=== PATIENT | male | born 1990 | race Caucasian/White ===

== ENCOUNTER 2021-07-09 19:49 | Emergency (ER) | payer OTHER, SELFPAY ==
[2021-07-09 20:00] VITALS: BP 130/86; PULSE 83; RESP 16; TEMP 36.2; O2SAT 100
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
== END 2021-07-09 20:11 | disposition home or self-care (01) ==
PROVIDERS: Emergency Provider Nurse Practitioner; PCP Family Medicine
DX: S39.012A Strain of muscle, fascia and tendon of lower back, initial encounter (principal); V49.9XXA Car occupant (driver) (passenger) injured in unspecified traffic accident, initial encounter
CPT/HCPCS: 99213; G0463